=== PATIENT | female | born 1950 | race Caucasian/White ===

== ENCOUNTER 2016-05-04 13:42 | Outpatient (CLI) | payer MEDICARE, OTHER | END 2016-05-04 13:43 | disposition home or self-care (01) | DX: M19.012 Primary osteoarthritis, left shoulder (principal) ==

== ENCOUNTER 2016-05-17 13:47 | Outpatient (CLI) | payer MEDICARE, OTHER | END 2016-05-17 13:48 | disposition home or self-care (01) | DX: R07.89 Other chest pain (principal) ==

== ENCOUNTER 2016-05-31 12:54 | Outpatient (CLI) | payer MEDICARE, OTHER | END 2016-05-31 12:55 | disposition home or self-care (01) | DX: M81.0 Age-related osteoporosis without current pathological fracture (principal) ==

== ENCOUNTER 2016-08-19 09:31 | Outpatient (CLI) | payer MEDICARE, OTHER | END 2016-08-19 09:32 | disposition home or self-care (01) | DX: E78.5 Hyperlipidemia, unspecified (principal); E03.9 Hypothyroidism, unspecified; R73.9 Hyperglycemia, unspecified; R53.83 Other fatigue ==

== ENCOUNTER 2016-10-11 13:51 | Outpatient (CLI) | payer MEDICARE, OTHER ==
--- NOTE | 2016-10-12 10:37 | XRAY Report ---
TWO-VIEW CHEST: 10/11/2016 CLINICAL INDICATION: Bronchitis. COMPARISON: 05/17/2016 FINDINGS: Frontal and lateral views of the chest demonstrate a normal cardiac silhouette. Minimal l eft basilar scarring or atelectasis is noted. No effusion or pneumothorax is present. IMPRESSION: MINIMAL LEFT BASILAR SCARRING OR ATELECTASIS. JOB #: [id number] EXT JOB #:[id number]
== END 2016-10-11 13:52 | disposition home or self-care (01) ==
LOC: DI.N 13:51
PROVIDERS: ATTEND Physician Assistant
DX: J40 Bronchitis, not specified as acute or chronic (principal)
CPT/HCPCS: 71020

== ENCOUNTER 2017-01-15 11:25 | Emergency (ER) | payer MEDICARE, OTHER ==
[2017-01-15] MEDS ORDERED: predniSONE 20 MG TABLET PO STA (13:37)
[2017-01-15] MEDS ORDERED: predniSONE 20 MG TABLET ONE (13:46)
--- NOTE | 2017-01-15 13:55 | ED Physician Documentation ---
History of Present Illness - Stated complaint Stated Complaint: RASH ALL OVER - Chief complaint Chief Complaint: Wound - Additonal information Additional information: hx from pt 66 female at football game last night noted bump on left wrist possible insect bite worsening diffuse rash since no oral swelling or matteo Review of Systems Constitutional: denies: Fever Throat: denies: Sore throat Respiratory: denies: Dyspnea Skin: reports: Rash PD PAST MEDICAL HISTORY - Past Medical History Endocrine/Autoimmune: HyPOthyroidism - Past Surgical History Past Surgical History: Yes General: Cholecystectomy - Present Medications Home Medications: Ambulatory Orders Medication Instructions Recorded Confirmed Levothyroxine [Synthroid] 0 mcg PO DAILY 12/20/13 12/20/13 Lidocaine Ointment 5% [Xylocaine 1 applic TOP Q6H PRN #1 tube 01/15/17 Ointment 5%] Metformin HCl 0 mg PO DAILY 01/15/17 01/15/17 Omeprazole 0 mg PO DAILY 01/15/17 01/15/17 predniSONE [Deltasone] 40 mg PO DAILY 5 Days 01/15/17 - Allergies Allergies/Adverse Reactions: Allergies Allergy/AdvReac Type Severity Reaction Status Date / Time codeine Allergy Emesis Verified 01/15/17 13:18 Sulfa (Sulfonamide Allergy Rash Verified 01/15/17 13:18 Antibiotics) - Social History Does the pt smoke?: Yes Smoking Status: Current every day smoker Does the pt drink ETOH?: No - Immunizations Immunizations are current?: No PD ED PE NORMAL - Vitals Vital signs reviewed: Yes - General General: Alert and oriented X 3 - HEENT HEENT: PERRL - Neck Neck: Supple, no meningeal sign - Cardiac Cardiac: RRR - Respiratory Respiratory: No respiratory distress, Clear bilaterally - Derm Derm: Other (erythematous macules c/w hive to arms, no target lesions vesicles petecchia or purpura, no oral lesions, no palm lesions, no retained stinger) Results - Vitals Vitals: Vital Signs - 24 hr 01/15/17 11:40 Temperature 37.0 C Heart Rate 80 Respiratory 17 Rate Blood Pressure 121/75 O2 Saturation 97 Oxygen O2 Source Room air Departure - Departure Disposition: 01 Home, Self Care Clinical Impression: Hives Condition: Good Instructions: ED Allergic Reaction General Other Prescriptions: predniSONE [Deltasone] 40 mg PO DAILY 5 Days Lidocaine Ointment 5% [Xylocaine Ointment 5%] 1 applic TOP Q6H PRN #1 tube PRN Reason: Itching Comments: I'm not sure what you are allergic to but I have prescribed medication to ease the discomfort Follow up with your PMD if not better in three days Return if worse
[2017-01-15 14:16] VITALS: BP 132/63
== END 2017-01-15 14:16 | disposition home or self-care (01) ==
LOC: ED 11:25
DX: L50.9 Urticaria, unspecified (principal); E03.9 Hypothyroidism, unspecified; F17.200 Nicotine dependence, unspecified, uncomplicated
CPT/HCPCS: 99283; J7512

== ENCOUNTER 2017-01-30 14:55 | Outpatient (CLI) | payer MEDICARE, OTHER ==
--- NOTE | 2017-01-30 16:27 | Ultrasound Report ---
THYROID ULTRASOUND: 01/30/2017 CLINICAL INDICATION: Throat swelling. COMPARISON: 08/12/2013. TECHNIQUE: Real-time scanning was performed with outreach representative static images obtained. FINDINGS: The right lobe measures 3.2 x 1.0 x 0.9 cm, and the left lobe measures 3.3 x 1.1 x 0.8 cm. The isthmus measures 2 mm. Both lobes are mildly heterogeneous, stable. No focal nodule is appreciat ed. No adenopathy is seen. IMPRESSION: NO EVIDENCE OF THYROID NODULE. NO SIGNIFICANT INTERVAL CHANGE FROM 08/12/2013. JOB #: [id number] EXT JOB #:
== END 2017-01-30 14:56 | disposition home or self-care (01) ==
LOC: DI 14:55
PROVIDERS: ATTEND Family Medicine
DX: R22.1 Localized swelling, mass and lump, neck (principal); F17.210 Nicotine dependence, cigarettes, uncomplicated
CPT/HCPCS: 76536

== ENCOUNTER 2017-02-21 07:58 | Outpatient (CLI) | payer MEDICARE, OTHER ==
[2017-02-21 12:36] LABS: BASOPHILS # (AUTO) 0.1 10^3/uL (0.0-0.1); BASOPHILS % (AUTO) 1.2 %; EOSINOPHILS # (AUTO) 0.2 10^3/uL (0.0-0.7); HCT - HEMATOCRIT 38.9 % (37.0-47.0); HGB - HEMOGLOBIN 13.2 g/dL (12.0-16.0); LYMPHOCYTES # (AUTO) 2.5 10^3/uL (1.5-3.5); LYMPHOCYTES % (AUTO) 31.7 %; MEAN CORPUSCULAR HEMOGLOBIN 29.7 pg (27.0-31.0); MEAN CORPUSCULAR HGB CONC 34.1 g/dL (32.0-36.0); MEAN CORPUSCULAR VOLUME 87.3 fL (81.0-99.0); MONOCYTES # (AUTO) 0.6 10^3/uL (0.0-1.0); MONOCYTES % (AUTO) 7.8 %; NEUTROPHILS # (AUTO) 4.4 10^3/uL (1.5-6.6); NEUTROPHILS % (AUTO) 56.3 %; RED BLOOD COUNT 4.45 10^6/uL (4.20-5.40); RED CELL DISTRIBUTION WIDTH 13.2 % (12.0-15.0); UNCORRECTED WHITE BLOOD COUNT 7.8 x10^3/uL; WHITE BLOOD COUNT 7.8 x10^3/uL (4.8-10.8)
[2017-02-21 12:55] LABS: ALBUMIN/GLOBULIN RATIO 1.6 (1.0-2.2); BILIRUBIN,TOTAL 0.6 mg/dL (0.2-1.0); BUN - BLOOD UREA NITROGEN 19 mg/dL (6-20); CALCIUM 9.3 mg/dL (8.5-10.3); CARBON DIOXIDE - CO2 25 mmol/L (21-32); CHLORIDE 105 mmol/L (101-111); CHOL/HDL RATIO 4.9 (<4.4); CHOLESTEROL 161 mg/dL; CREATININE 0.8 mg/dL (0.4-1.0); GFR - MDRD 71 (>89); GLUCOSE 134 mg/dL (70-100); HDL CHOLESTEROL 33 mg/dL; POTASSIUM 3.9 mmol/L (3.5-5.0); SODIUM 139 mmol/L (135-145); TOTAL PROTEIN 6.6 g/dL (6.7-8.2); TRIGLYCERIDES 315 mg/dL; VLDL CHOLESTEROL 63 mg/dL
[2017-02-21 13:04] LABS: THYROID STIMULATING HORMONE 3.86 uIU/mL (0.34-5.60)
[2017-02-21 13:05] LABS: HEMOGLOBIN A1C 0.81 g/dL
== END 2017-02-21 07:59 ==
LOC: LAB.N 07:58
PROVIDERS: ATTEND Family Medicine
DX: M81.0 Age-related osteoporosis without current pathological fracture (principal); E78.5 Hyperlipidemia, unspecified; E03.9 Hypothyroidism, unspecified; R73.9 Hyperglycemia, unspecified
CPT/HCPCS: 36415; 80053; 80061; 82306; 83036; 84439; 84443; 85025

== ENCOUNTER 2017-05-10 08:16 | Outpatient (CLI) | payer MEDICARE, OTHER ==
[2017-05-10 12:55] LABS: ALBUMIN 4.2 g/dL (3.2-5.5); ALBUMIN/GLOBULIN RATIO 1.6 (1.0-2.2); ALKALINE PHOSPHATASE 76 IU/L (42-121); ALT ALANINE AMINOTRANSFERASE 22 IU/L (10-60); AST ASPARTATE AMINOTRANSFERASE 22 IU/L (10-42); BILIRUBIN,TOTAL 0.2 mg/dL (0.2-1.0); BUN - BLOOD UREA NITROGEN 18 mg/dL (6-20); CALCIUM 8.9 mg/dL (8.5-10.3); CARBON DIOXIDE - CO2 26 mmol/L (21-32); CHLORIDE 107 mmol/L (101-111); CHOL/HDL RATIO 4.4 (<4.4); CHOLESTEROL 162 mg/dL; CREATININE 0.8 mg/dL (0.4-1.0); GFR - MDRD 71 (>89); GLUCOSE 112 mg/dL (70-100); HDL CHOLESTEROL 37 mg/dL; LDL CHOLESTEROL,CALCULATED 67 mg/dL; LDL/HDL RATIO 1.8 (<4.4); SODIUM 137 mmol/L (135-145); TOTAL PROTEIN 6.8 g/dL (6.7-8.2); VLDL CHOLESTEROL 58 mg/dL
== END 2017-05-10 08:17 | disposition home or self-care (01) ==
LOC: LAB.N 08:16
PROVIDERS: ATTEND Family Medicine
DX: E78.5 Hyperlipidemia, unspecified (principal); E03.9 Hypothyroidism, unspecified
CPT/HCPCS: 36415; 80053; 80061; 84443

== ENCOUNTER 2017-06-14 13:18 | Outpatient (CLI) | payer MEDICARE, OTHER ==
[2017-06-14 19:09] LABS: CREATININE 0.7 mg/dL (0.4-1.0)
[2017-06-14 19:34] LABS: HEMOGLOBIN A1C 0.68 g/dL; HEMOGLOBIN A1C % 6.3 % (4.6-6.2)
== END 2017-06-14 13:19 | disposition home or self-care (01) ==
LOC: LAB.N 13:18
PROVIDERS: ATTEND Family Medicine
DX: E11.9 Type 2 diabetes mellitus without complications (principal)
CPT/HCPCS: 36415; 80048; 83036

== ENCOUNTER 2017-09-18 10:45 | Outpatient (CLI) | payer MEDICARE, OTHER ==
[2017-09-18 19:25] LABS: HB2 TOTAL 14.1 g/dL; HEMOGLOBIN A1C 0.63 g/dL; HEMOGLOBIN A1C % 6.2 % (4.6-6.2)
[2017-09-18 19:29] LABS: CALCIUM 9.3 mg/dL (8.5-10.3); CREATININE 0.8 mg/dL (0.4-1.0)
== END 2017-09-18 10:46 | disposition home or self-care (01) ==
LOC: LAB.N 10:45
PROVIDERS: ATTEND Family Medicine
DX: E11.9 Type 2 diabetes mellitus without complications (principal)
CPT/HCPCS: 36415; 80048; 83036

== ENCOUNTER 2018-01-02 08:22 | Outpatient (CLI) | payer MEDICARE, OTHER ==
[2018-01-02 12:39] LABS: CALCIUM 9.4 mg/dL (8.5-10.3); CREATININE 0.8 mg/dL (0.4-1.0)
[2018-01-02 13:01] LABS: THYROID STIMULATING HORMONE 5.28 uIU/mL (0.34-5.60)
[2018-01-02 13:03] LABS: FREE T4 (FREE THYROXINE) 0.91 ng/dL (0.58-1.64)
[2018-01-02 13:08] LABS: HEMOGLOBIN A1C 0.63 g/dL; HEMOGLOBIN A1C % 6.3 % (4.6-6.2)
== END 2018-01-02 08:23 | disposition home or self-care (01) ==
LOC: LAB.N 08:22
PROVIDERS: ATTEND Family Medicine
DX: E11.9 Type 2 diabetes mellitus without complications (principal); E03.9 Hypothyroidism, unspecified
CPT/HCPCS: 36415; 80048; 83036; 84439; 84443

== ENCOUNTER 2018-05-08 14:03 | Outpatient (CLI) | payer MEDICARE, OTHER ==
[2018-05-08 19:07] LABS: CALCIUM 9.5 mg/dL (8.5-10.3); CREATININE 0.7 mg/dL (0.4-1.0)
[2018-05-08 19:15] LABS: HB2 TOTAL 14.6 g/dL; HEMOGLOBIN A1C 0.61 g/dL
== END 2018-05-08 23:59 | disposition home or self-care (01) ==
LOC: LAB.N 14:03
PROVIDERS: ATTEND Nurse Practitioner Gerontology
DX: E11.9 Type 2 diabetes mellitus without complications (principal)
CPT/HCPCS: 36415; 80048; 83036

== ENCOUNTER 2018-08-20 08:00 | Outpatient (CLI) | payer MEDICARE, OTHER ==
[2018-08-20 13:45] LABS: BASOPHILS # (AUTO) 0.1 10^3/uL (0.0-0.1); BASOPHILS % (AUTO) 0.7 %; EOSINOPHILS # (AUTO) 0.3 10^3/uL (0.0-0.7); EOSINOPHILS % (AUTO) 4.1 %; HGB - HEMOGLOBIN 13.4 g/dL (12.0-16.0); LYMPHOCYTES # (AUTO) 2.5 10^3/uL (1.5-3.5); MEAN CORPUSCULAR HEMOGLOBIN 29.8 pg (27.0-31.0); MEAN CORPUSCULAR HGB CONC 33.5 g/dL (32.0-36.0); MEAN CORPUSCULAR VOLUME 89.1 fL (81.0-99.0); MONOCYTES # (AUTO) 0.6 10^3/uL (0.0-1.0); MONOCYTES % (AUTO) 7.6 %; NEUTROPHILS # (AUTO) 4.4 10^3/uL (1.5-6.6); NEUTROPHILS % (AUTO) 55.6 %; PLT - PLATELET COUNT 231 10^3/uL (130-450); RED BLOOD COUNT 4.49 10^6/uL (4.20-5.40); RED CELL DISTRIBUTION WIDTH 13.1 % (12.0-15.0); WHITE BLOOD COUNT 7.8 x10^3/uL (4.8-10.8)
[2018-08-20 14:03] LABS: ALBUMIN/GLOBULIN RATIO 1.4 (1.0-2.2); ALKALINE PHOSPHATASE 69 IU/L (42-121); ALT ALANINE AMINOTRANSFERASE 25 IU/L (10-60); AST ASPARTATE AMINOTRANSFERASE 22 IU/L (10-42); BILIRUBIN,TOTAL 0.5 mg/dL (0.2-1.0); BUN - BLOOD UREA NITROGEN 20 mg/dL (6-20); CALCIUM 9.1 mg/dL (8.5-10.3); CARBON DIOXIDE - CO2 25 mmol/L (21-32); CHLORIDE 107 mmol/L (101-111); CHOL/HDL RATIO 3.4 (<4.4); CHOLESTEROL 155 mg/dL; CREATININE 0.8 mg/dL (0.4-1.0); GFR - MDRD 71 (>89); GLUCOSE 111 mg/dL (70-100); HDL CHOLESTEROL 46 mg/dL; LDL CHOLESTEROL,CALCULATED 65 mg/dL; LDL/HDL RATIO 1.4 (<4.4); SODIUM 139 mmol/L (135-145); TOTAL PROTEIN 6.9 g/dL (6.7-8.2); VLDL CHOLESTEROL 44 mg/dL
[2018-08-20 14:59] LABS: HB2 TOTAL 14.4 g/dL; HEMOGLOBIN A1C 0.61 g/dL
== END 2018-08-20 23:59 | disposition home or self-care (01) ==
LOC: LAB.N 08:00
PROVIDERS: ATTEND Nurse Practitioner Gerontology
DX: E11.9 Type 2 diabetes mellitus without complications (principal); E78.5 Hyperlipidemia, unspecified; E03.9 Hypothyroidism, unspecified; Z12.11 Encounter for screening for malignant neoplasm of colon
CPT/HCPCS: 36415; 80053; 80061; 83036; 83721; 84443; 85025

== ENCOUNTER 2018-08-21 08:00 | Outpatient (CLI) | payer MEDICARE, OTHER | END 2018-08-21 08:01 | disposition home or self-care (01) | LOC: LAB.R 08:00 | PROVIDERS: ATTEND Nurse Practitioner Gerontology | DX: E11.9 Type 2 diabetes mellitus without complications (principal); E78.5 Hyperlipidemia, unspecified; E03.9 Hypothyroidism, unspecified; Z12.11 Encounter for screening for malignant neoplasm of colon | CPT/HCPCS: 82274 ==

== ENCOUNTER 2018-10-31 14:40 | Outpatient (CLI) | payer MEDICARE, OTHER ==
--- NOTE | 2018-11-02 09:34 | Mammography Report ---
Reason: ROUTINE MAMMO Procedure Date: 10/31/2018 Accession Number: [id number] / [id number] Procedure: MGN - Screening Mammo Dig Bilat CPT Code: FULL RESULT: EXAM: Screening Mammo Dig Bilat DATE: 10/31/2018 2:56 PM CLINICAL HISTORY: Routine screening TECHNIQUE: (B) - Bilateral CC and MLO views were obtained. COMPARISON: 09/26/2013, 12/22/2011, 12/09/2011 and 08/21/2007 PARENCHYMAL PATTERN: (A) - The breasts demonstrate scattered fibroglandular densities bilaterally. FINDINGS: No significant interval change. There are no suspicious masses, calcifications, or areas of distortion. IMPRESSION: Negative examination. BI-RADS category 1. RECOMMENDATION: (ANNUAL) - Recommend routine annual screening mammography. BI-RADS CATEGORY: (1) - Negative. STANDARD QUALIFYING STATEMENTS: 1. This examination was not reviewed with the aid of Computer-Aided Detection (CAD). 2. A negative or benign imaging report should not preclude biopsy if clinically suspicious findings are present. 3. Dense breasts may obscure an underlying neoplasm. 4. This examination was reviewed without the aid of 3D breast imaging (tomosynthesis).
== END 2018-10-31 14:41 | disposition home or self-care (01) ==
LOC: DI.N 14:40
PROVIDERS: ATTEND Nurse Practitioner Gerontology
DX: Z12.31 Encounter for screening mammogram for malignant neoplasm of breast (principal)
CPT/HCPCS: 77067

== ENCOUNTER 2019-09-13 09:38 | Outpatient (CLI) | payer MEDICARE, OTHER ==
[2019-09-13 13:05] LABS: BASOPHILS # (AUTO) 0.1 10^3/uL (0.0-0.1); BASOPHILS % (AUTO) 1.2 %; EOSINOPHILS # (AUTO) 0.3 10^3/uL (0.0-0.7); EOSINOPHILS % (AUTO) 4.5 %; HGB - HEMOGLOBIN 13.2 g/dL (12.0-16.0); LYMPHOCYTES # (AUTO) 1.7 10^3/uL (1.5-3.5); LYMPHOCYTES % (AUTO) 22.8 %; MEAN CORPUSCULAR HEMOGLOBIN 30.3 pg (27.0-31.0); MEAN CORPUSCULAR HGB CONC 32.6 g/dL (32.0-36.0); MEAN CORPUSCULAR VOLUME 93.1 fL (81.0-99.0); MEAN PLATELET VOLUME 10.6 fL (7.9-10.8); MONOCYTES # (AUTO) 0.6 10^3/uL (0.0-1.0); MONOCYTES % (AUTO) 7.6 %; NEUTROPHILS # (AUTO) 4.6 10^3/uL (1.5-6.6); NEUTROPHILS % (AUTO) 63.2 %; PLT - PLATELET COUNT 244 10^3/uL (130-450); RED BLOOD COUNT 4.35 10^6/uL (4.20-5.40); RED CELL DISTRIBUTION WIDTH 14.5 % (12.0-15.0); WHITE BLOOD COUNT 7.3 x10^3/uL (4.8-10.8)
[2019-09-13 13:39] LABS: HB2 TOTAL 14.3 g/dL; HEMOGLOBIN A1C 0.56 g/dL; HEMOGLOBIN A1C % 5.7 % (4.6-6.2)
[2019-09-13 13:46] LABS: ALBUMIN 4.2 g/dL (3.2-5.5); ALBUMIN/GLOBULIN RATIO 1.6 (1.0-2.2); ALKALINE PHOSPHATASE 67 IU/L (42-121); ALT ALANINE AMINOTRANSFERASE 18 IU/L (10-60); AST ASPARTATE AMINOTRANSFERASE 19 IU/L (10-42); BILIRUBIN,TOTAL 0.5 mg/dL (0.2-1.0); BUN - BLOOD UREA NITROGEN 20 mg/dL (6-20); CALCIUM 9.1 mg/dL (8.5-10.3); CARBON DIOXIDE - CO2 26 mmol/L (21-32); CHLORIDE 107 mmol/L (101-111); CHOL/HDL RATIO 3.1 (<4.4); CHOLESTEROL 166 mg/dL; CREATININE 0.7 mg/dL (0.4-1.0); GLUCOSE 110 mg/dL (70-100); HDL CHOLESTEROL 53 mg/dL; LDL CHOLESTEROL,CALCULATED 88 mg/dL; LDL/HDL RATIO 1.7 (<4.4); SODIUM 139 mmol/L (135-145); TOTAL PROTEIN 6.9 g/dL (6.7-8.2); VLDL CHOLESTEROL 25 mg/dL
== END 2019-09-13 23:59 | disposition home or self-care (01) ==
LOC: LAB.WCP 09:38
PROVIDERS: ATTEND Family Medicine
DX: E11.9 Type 2 diabetes mellitus without complications (principal); E78.5 Hyperlipidemia, unspecified; E03.9 Hypothyroidism, unspecified
CPT/HCPCS: 36415; 80053; 80061; 83036; 83721; 84443; 85025

== ENCOUNTER 2020-09-30 08:09 | Outpatient (CLI) | payer MEDICARE, OTHER ==
[2020-09-30 12:37] LABS: BASOPHILS # (AUTO) 0.1 10^3/uL (0.0-0.1); BASOPHILS % (AUTO) 1.1 %; EOSINOPHILS # (AUTO) 0.3 10^3/uL (0.0-0.7); EOSINOPHILS % (AUTO) 3.4 %; HCT - HEMATOCRIT 38.8 % (37.0-47.0); LYMPHOCYTES # (AUTO) 2.4 10^3/uL (1.5-3.5); LYMPHOCYTES % (AUTO) 26.6 %; MEAN CORPUSCULAR HEMOGLOBIN 30.5 pg (27.0-31.0); MEAN CORPUSCULAR HGB CONC 33.5 g/dL (32.0-36.0); MEAN CORPUSCULAR VOLUME 91.1 fL (81.0-99.0); MEAN PLATELET VOLUME 10.7 fL (7.9-10.8); MONOCYTES # (AUTO) 0.8 10^3/uL (0.0-1.0); MONOCYTES % (AUTO) 8.6 %; NEUTROPHILS # (AUTO) 5.3 10^3/uL (1.5-6.6); PLT - PLATELET COUNT 228 10^3/uL (130-450); RED BLOOD COUNT 4.26 10^6/uL (4.20-5.40); RED CELL DISTRIBUTION WIDTH 12.7 % (12.0-15.0); WHITE BLOOD COUNT 8.9 x10^3/uL (4.8-10.8)
[2020-09-30 12:54] LABS: ALBUMIN 4.2 g/dL (3.2-5.5); ALBUMIN/GLOBULIN RATIO 1.4 (1.0-2.2); ALKALINE PHOSPHATASE 59 IU/L (42-121); ALT ALANINE AMINOTRANSFERASE 13 IU/L (10-60); AST ASPARTATE AMINOTRANSFERASE 16 IU/L (10-42); BILIRUBIN,TOTAL 0.4 mg/dL (0.2-1.0); BUN - BLOOD UREA NITROGEN 22 mg/dL (6-20); CALCIUM 9.4 mg/dL (8.5-10.3); CARBON DIOXIDE - CO2 24 mmol/L (21-32); CHLORIDE 107 mmol/L (101-111); CHOL/HDL RATIO 3.4 (<4.4); CHOLESTEROL 155 mg/dL; CREATININE 0.8 mg/dL (0.4-1.0); GFR - MDRD 71 (>89); GLUCOSE 94 mg/dL (70-100); HDL CHOLESTEROL 46 mg/dL; LDL CHOLESTEROL,CALCULATED 57 mg/dL; LDL/HDL RATIO 1.2 (<4.4); POTASSIUM 4.1 mmol/L (3.5-5.0); SODIUM 141 mmol/L (135-145); TOTAL PROTEIN 7.1 g/dL (6.7-8.2); TRIGLYCERIDES 260 mg/dL; VLDL CHOLESTEROL 52 mg/dL
[2020-09-30 13:04] LABS: ESTIMATED AVERAGE GLUCOSE 111 mg/dL (70-100); HEMOGLOBIN A1c% 5.5 % (4.27-6.07); THYROID STIMULATING HORMONE 0.44 uIU/mL (0.34-5.60)
[2020-09-30 13:20] LABS: CREATININE,URINE 186.1 mg/dL; MICROALBUM/CREATININE RATIO,UR 7.5 ug/mg (<30.0); MICROALBUMIN,URINE 1.4 mg/dL (0-300.0)
== END 2020-09-30 08:10 | disposition home or self-care (01) ==
LOC: LAB.N 08:09
PROVIDERS: ATTEND Internal Medicine
DX: E11.9 Type 2 diabetes mellitus without complications (principal)
CPT/HCPCS: 36415; 80053; 80061; 82043; 82570; 83036; 83721; 84443; 85025

== ENCOUNTER 2020-12-07 08:00 | Outpatient (CLI) | payer MEDICARE, OTHER ==
[2020-12-07 17:47] LABS: BASOPHILS # (AUTO) 0.1 10^3/uL (0.0-0.1); BASOPHILS % (AUTO) 1.1 %; EOSINOPHILS # (AUTO) 0.2 10^3/uL (0.0-0.7); EOSINOPHILS % (AUTO) 2.2 %; HGB - HEMOGLOBIN 12.7 g/dL (12.0-16.0); LYMPHOCYTES # (AUTO) 2.1 10^3/uL (1.5-3.5); LYMPHOCYTES % (AUTO) 23.2 %; MEAN CORPUSCULAR HEMOGLOBIN 29.8 pg (27.0-31.0); MEAN CORPUSCULAR HGB CONC 31.8 g/dL (32.0-36.0); MEAN CORPUSCULAR VOLUME 93.9 fL (81.0-99.0); MEAN PLATELET VOLUME 10.6 fL (7.9-10.8); MONOCYTES # (AUTO) 0.6 10^3/uL (0.0-1.0); MONOCYTES % (AUTO) 6.9 %; NEUTROPHILS % (AUTO) 66.3 %; PLT - PLATELET COUNT 241 10^3/uL (130-450); RED BLOOD COUNT 4.26 10^6/uL (4.20-5.40); RED CELL DISTRIBUTION WIDTH 12.8 % (12.0-15.0)
[2020-12-07 18:48] LABS: ALBUMIN 4.3 g/dL (3.2-5.5); ALBUMIN/GLOBULIN RATIO 1.7 (1.0-2.2); ALKALINE PHOSPHATASE 62 IU/L (42-121); ALT ALANINE AMINOTRANSFERASE 14 IU/L (10-60); AMYLASE 45 U/L (28-100); AST ASPARTATE AMINOTRANSFERASE 15 IU/L (10-42); BILIRUBIN,TOTAL 0.6 mg/dL (0.2-1.0); BUN - BLOOD UREA NITROGEN 18 mg/dL (6-20); CARBON DIOXIDE - CO2 26 mmol/L (21-32); CHLORIDE 105 mmol/L (101-111); CHOL/HDL RATIO 3.3 (<4.4); CHOLESTEROL 150 mg/dL; CREATININE 0.9 mg/dL (0.4-1.0); GFR - MDRD 62 (>89); GLUCOSE 116 mg/dL (70-100); HDL CHOLESTEROL 45 mg/dL; LDL CHOLESTEROL,CALCULATED 49 mg/dL; LDL/HDL RATIO 1.1 (<4.4); LIPASE 32 U/L (22-51); POTASSIUM 4.3 mmol/L (3.5-5.0); SODIUM 139 mmol/L (135-145); TOTAL PROTEIN 6.9 g/dL (6.7-8.2); TRIGLYCERIDES 282 mg/dL; VLDL CHOLESTEROL 56 mg/dL
[2020-12-07 19:01] LABS: BILIRUBIN,URINE NEGATIVE (NEGATIVE); GLUCOSE, URINE (UA) 100 mg/dL (NEGATIVE); KETONES,URINE (UA) NEGATIVE (NEGATIVE); LEUKOCYTE ESTERASE, URINE NEGATIVE (NEGATIVE); NITRITE,URINE NEGATIVE (NEGATIVE); OCCULT BLOOD,URINE NEGATIVE (NEGATIVE); PROTEIN,URINE NEGATIVE (NEGATIVE); UROBILINOGEN,URINE 0.2 (NORMAL) E.U./dL (NORMAL)
[2020-12-07 19:08] LABS: CLARITY,URINE HAZY (CLEAR)
[2020-12-07 19:14] LABS: WBC,URINE 0-3 /HPF (0-5)
[2020-12-07 19:15] LABS: AMORPHOUS SEDIMENT,UR Marked /LPF; BACTERIA,URINE Rare /HPF (None Seen); CRYSTALS,URINE 0-2 Calcium Oxalate /LPF; RBC,URINE 0-5 /HPF (0-5); SQUAMOUS EPITHELIAL CELL,UR RARE Squamous (<= Few)
[2020-12-07 19:16] LABS: CREATININE,URINE 201.3 mg/dL; MICROALBUM/CREATININE RATIO,UR 5.5 ug/mg (<30.0); MICROALBUMIN,URINE 1.1 mg/dL (0-300.0)
[2020-12-07 20:00] LABS: ESTIMATED AVERAGE GLUCOSE 111 mg/dL (70-100); HEMOGLOBIN A1c% 5.5 % (4.27-6.07)
== END 2020-12-07 23:59 | disposition home or self-care (01) ==
LOC: LAB.WCP 08:00
PROVIDERS: ATTEND Nurse Practitioner
DX: R10.9 Unspecified abdominal pain (principal); E78.5 Hyperlipidemia, unspecified; E11.9 Type 2 diabetes mellitus without complications
CPT/HCPCS: 36415; 80053; 80061; 81001; 82043; 82150; 82570; 83036; 83690; 83721; 85025; 87086

== ENCOUNTER 2020-12-30 13:28 | Outpatient (CLI) | payer MEDICARE, OTHER ==
--- NOTE | 2020-12-31 13:22 | Mammography Report ---
BILATERAL DIGITAL SCREENING MAMMOGRAM 3D/2D: 12/30/2020 CLINICAL: Routine screening. Comparison is made to exams dated: 10/31/2018 mammogram, 09/26/2013 mammogram, 12/22/2011 mammogram, 11/29 mammogram, and 08/21/2007 mammogram - [facility]. There are scattered fibrog landular elements in both breasts. No significant masses, calcifications, or other findings are seen in either breast. There has been no significant interval change. IMPRESSION: NEGATIVE There is no mammographic evidence of malignancy. A 1 year screening mammogram is recommended. This exam was interpreted at Station ID: [id number]. NOTE: For mammograms, a report in lay terms will be sent to the patient. Approximately 15% of breast malignancies will not be visualized mammographically. In the management of a palpable breast mass, a negative mammogram must not discourage biopsy of a clinically suspicious lesion. Electronically Signed By: Kriss reid/marilin:12/30/2020 16:17:18 ACR BI-RADS Category 1: Negative 3341F PARENCHYMAL PATTERN: (A) - The breast(s) demonstrate(s) scattered fibroglandular densities. BI-RADS CATEGORY: (1) - 1 RECOMMENDATION: (ANNUAL) - Recommend routine annual screening mammography. [id number] 1 year screening LATERALITY: (B)
== END 2020-12-30 13:29 | disposition home or self-care (01) ==
LOC: DI.N 13:28
PROVIDERS: ATTEND Internal Medicine
DX: Z12.31 Encounter for screening mammogram for malignant neoplasm of breast (principal)

== ENCOUNTER 2021-01-13 08:00 | Outpatient (CLI) | payer MEDICARE, OTHER ==
[2021-01-14 12:20] LABS: FECAL OCCULT BLOOD (FIT) POSITIVE (NEGATIVE)
== END 2021-01-13 23:59 | disposition home or self-care (01) ==
LOC: LAB 08:00
PROVIDERS: ATTEND Nurse Practitioner
DX: Z12.11 Encounter for screening for malignant neoplasm of colon (principal)
CPT/HCPCS: 82274

== ENCOUNTER 2021-01-22 07:00 | Outpatient (CLI) | payer MEDICARE, OTHER | END 2021-01-22 23:59 | disposition home or self-care (01) | LOC: LAB 07:00 | PROVIDERS: ATTEND Nurse Practitioner | DX: J06.9 Acute upper respiratory infection, unspecified (principal); Z20.822 Contact with and (suspected) exposure to COVID-19 ==

== ENCOUNTER 2021-09-08 12:46 | Outpatient (CLI) | payer MEDICARE, OTHER ==
--- NOTE | 2021-09-08 14:18 | XRAY Report ---
PROCEDURE: Lumbar Spine 2 View INDICATIONS: BACK PAIN TECHNIQUE: 2 views of the lumbar spine were acquired. COMPARISON: None. FINDINGS: Bones: 5 [id number]-[id number] vertebrae are present. There is normal bony alignment. No vertebral body compression fractures. No suspicious bony lesions. There is mild degenerative disc disease at L3-L4 and L4-L5. Moderate facet arthropathy at 4-L5 and L5-S1. Soft tissues: Overlying bowel gas pattern is normal. Vascular calcifications consistent with hyperos tosis. Note is made of of cholecystectomy. IMPRESSION: 1. Mild degenerative disc disease at L3-L4 and L5 L5. 2. Moderate facet arthropathy at L4-L5 and L5-S1. Reviewed by: Carmina Deleon MD on 09/08/2021 1:17 PM [facility]ER[facility] Approved by: Carmina Deleon MD on 09/08/2021 1:17 PM SHER[facility] Station ID: [id number]
== END 2021-09-08 12:47 | disposition home or self-care (01) ==
LOC: DI 12:46
PROVIDERS: ATTEND Nurse Practitioner
DX: M51.36 Other intervertebral disc degeneration, lumbar region (principal); M47.816 Spondylosis without myelopathy or radiculopathy, lumbar region; M47.817 Spondylosis without myelopathy or radiculopathy, lumbosacral region

== ENCOUNTER 2022-03-01 08:00 | Outpatient (CLI) | payer MEDICARE, OTHER ==
--- NOTE | 2022-03-01 19:17 | XRAY Report ---
PROCEDURE: Chest 2 View X-Ray INDICATIONS: COUGH TECHNIQUE: 2 view(s) of the chest. COMPARISON: None. FINDINGS: Surgical changes and devices: None. Lungs and pleura: No pleural effusions or pneumothorax. Linear opacities at both lung bases, likely atelectasis and/or scarring. No consolidation visualized. The lungs appear hyperinflated, a finding t hat can be seen in the setting of COPD. Mediastinum: Mediastinal contours are normal. Heart size is normal. Bones and chest wall: No suspicious bony abnormalities. Soft tissues appear unremarkable. IMPRESSION: No acute appearing cardiopulmonary abnormality. Linear opacities are present at both kaden g bases likely representing atelectasis and/or scarring. Reviewed by: Benjamin Marcano MD on 03/01/2022 7:16 PM PDT Approved by: Benjamin Marcano MD on 03/01/2022 7:16 PM PDT Station ID: [id number]
== END 2022-03-01 23:59 | disposition home or self-care (01) ==
LOC: DI.N 08:00
PROVIDERS: ATTEND Physician Assistant
DX: R05.9 Cough, unspecified (principal)

== ENCOUNTER 2022-05-12 08:00 | Outpatient (CLI) | payer MEDICARE, OTHER ==
[2022-05-12 17:58] LABS: FECAL OCCULT BLOOD (FIT) NEGATIVE (NEGATIVE)
== END 2022-05-12 23:59 | disposition home or self-care (01) ==
LOC: LAB.N 08:00
PROVIDERS: ATTEND Nurse Practitioner
DX: Z12.11 Encounter for screening for malignant neoplasm of colon (principal)
CPT/HCPCS: 82274

== ENCOUNTER 2022-05-20 09:18 | Outpatient (CLI) | payer MEDICARE, OTHER ==
[2022-05-20 12:49] LABS: BASOPHILS # (AUTO) 0.1 10^3/uL (0.0-0.1); EOSINOPHILS # (AUTO) 0.3 10^3/uL (0.0-0.7); EOSINOPHILS % (AUTO) 2.8 %; HCT - HEMATOCRIT 41.5 % (37.0-47.0); HGB - HEMOGLOBIN 13.5 g/dL (12.0-16.0); LYMPHOCYTES # (AUTO) 2.2 10^3/uL (1.5-3.5); MEAN CORPUSCULAR HEMOGLOBIN 29.4 pg (27.0-31.0); MEAN CORPUSCULAR HGB CONC 32.5 g/dL (32.0-36.0); MEAN CORPUSCULAR VOLUME 90.4 fL (81.0-99.0); MEAN PLATELET VOLUME 10.4 fL (7.9-10.8); MONOCYTES # (AUTO) 0.7 10^3/uL (0.0-1.0); NEUTROPHILS # (AUTO) 6.8 10^3/uL (1.5-6.6); NEUTROPHILS % (AUTO) 66.8 %; PLT - PLATELET COUNT 272 10^3/uL (130-450); RED BLOOD COUNT 4.59 10^6/uL (4.20-5.40); RED CELL DISTRIBUTION WIDTH 14.1 % (12.0-15.0); WHITE BLOOD COUNT 10.1 x10^3/uL (4.8-10.8)
[2022-05-20 13:29] LABS: ESTIMATED AVERAGE GLUCOSE 114 mg/dL (70-100); HEMOGLOBIN A1c% 5.6 % (4.27-6.07)
[2022-05-20 13:30] LABS: CHOL/HDL RATIO 3.1 (<4.4); CHOLESTEROL 134 mg/dL; HDL CHOLESTEROL 43 mg/dL; LDL CHOLESTEROL,CALCULATED 46 mg/dL; LDL/HDL RATIO 1.1 (<4.4); TRIGLYCERIDES 224 mg/dL; VLDL CHOLESTEROL 45 mg/dL
[2022-05-20 13:42] LABS: THYROID STIMULATING HORMONE 16.78 uIU/mL (0.34-5.60)
[2022-05-20 13:45] LABS: FREE T4 (FREE THYROXINE) 0.74 ng/dL (0.58-1.64)
[2022-05-20 19:03] LABS: CREATININE,URINE 137.6 mg/dL; MICROALBUM/CREATININE RATIO,UR 7.3 ug/mg (<30.0)
== END 2022-05-20 09:19 | disposition home or self-care (01) ==
LOC: LAB.N 09:18
PROVIDERS: ATTEND Nurse Practitioner
DX: E78.5 Hyperlipidemia, unspecified (principal); E11.9 Type 2 diabetes mellitus without complications; E03.9 Hypothyroidism, unspecified
CPT/HCPCS: 36415; 80061; 82043; 82570; 82607; 83036; 83721; 84439; 84443; 85025

== ENCOUNTER 2022-05-24 14:24 | Outpatient (CLI) | payer MEDICARE, OTHER ==
--- NOTE | 2022-05-25 09:16 | Mammography Report ---
BILATERAL DIGITAL SCREENING MAMMOGRAM 3D/2D: 05/24/2022 CLINICAL: Routine screening. Comparison is made to exams dated: 12/30/2020 mammogram, 10/31/2018 mammogram, 09/26/2013 mammogram, 12/21 mammogram, and 12/09/2011 mammogram - [facility]. There are scattered areas of fibroglandular density in both breasts (category b / 25%-50% glandular t issue). No significant masses, calcifications, or other findings are seen in either breast. There has been no significant interval change. IMPRESSION: NEGATIVE There is no mammographic evidence of malignancy. A 1 year screening mammogram is recommended. Based on the Tyrer Cuzick model (a risk assessment model) the patients lifetime risk is 2.7% and her 10 year risk is 2.2%. According to the ACR, ACS, and NCCN guidelines, an annual breast MRI exam conrad g with mammogram is recommended if the patients lifetime risk is 20% or greater. This exam was interpreted at Station ID: [id number]. NOTE: For mammograms, a report in lay terms will be sent to the patient. Approximately 15% of breast malignancies will not be visualized mammographically. In the management of a palpable breast mass, a negative mammogram must not discourage biopsy of a clinically suspicious lesion. Electronically Signed By: Lobito Humphrey M.D. acr/penrad:05/24/2022 15:35:27 ACR BI-RADS Category 1: Negative 3341F PARENCHYMAL PATTERN: (A) - The breast(s) demonstrate(s) scattered fibroglandular densities. BI-RADS CATEGORY: (1) - 1 RECOMMENDATION: (ANNUAL) - Recommend routine annual screening mammography. [id number] 1 year screening LATERALITY: (B)
== END 2022-05-24 14:25 | disposition home or self-care (01) ==
LOC: DI 14:24
PROVIDERS: ATTEND Nurse Practitioner
DX: Z12.31 Encounter for screening mammogram for malignant neoplasm of breast (principal)

== ENCOUNTER 2022-06-06 13:09 | Outpatient (CLI) | payer MEDICARE, OTHER ==
--- NOTE | 2022-06-06 20:06 | CT Report ---
PROCEDURE: Low Dose Lung Cancer Screen INDICATIONS: CIGARETTE SMOKER TECHNIQUE: Noncontrast low-dose axial images were acquired from the pulmonary apices to the posterior costophren ic angles. Multiplanar MIP reformats were then reconstructed. For radiation dose reduction, the follo wing was used: automated exposure control, adjustment of mA and/or kV according to patient size. COMPARISON: CXR 03/01/2022. CT abdomen pelvis 03/08/2021. FINDINGS: Image quality: Excellent. Lungs and pleura: Mild emphysematous change. A few small pulmonary cysts. Mild dependent curvilinear opacity which has the appearance of atelectasis. Central airways are clear. Right upper lobe pulmona ry nodule measuring 0.3 cm, (4/82). No pulmonary mass. No pleural effusion. No pneumothorax. Mediastinum: Heart size is normal. No pericardial effusion. No mediastinal adenopathy by size crit eria. Thoracic aorta and central pulmonary arteries are normal in size. Esophagus is normal in bg vik. No hiatal hernia. Bones and chest wall: No suspicious bony lesions. No vertebral body compression fractures. No axil homero or supraclavicular adenopathy by size criteria. The thyroid is normal in size and there are no incidental findings. Abdomen: Visualized upper abdomen solid organs and bowel loops appear normal in the absence of contr ast. Small pulmonary cysts. Cholecystectomy. IMPRESSION: Right upper lobe pulmonary nodule measuring 0.3 cm. Lung RADS 2. Recommend follow-up CT lung cancer screening in 12 months. Reviewed by: Tyrell John MD on 06/06/2022 8:05 PM [facility] Approved by: Tyrell John MD on 06/06/2022 8:05 PM PST Station ID: [id number]
== END 2022-06-06 13:10 | disposition home or self-care (01) ==
LOC: DI 13:09
PROVIDERS: ATTEND Nurse Practitioner
DX: Z12.2 Encounter for screening for malignant neoplasm of respiratory organs (principal); R91.1 Solitary pulmonary nodule; F17.210 Nicotine dependence, cigarettes, uncomplicated

== ENCOUNTER 2023-01-31 17:23 | Emergency (ER) | payer MEDICARE, OTHER ==
[2023-01-31 17:41] VITALS: BP 124/105; O2SAT 99
--- NOTE | 2023-01-31 18:35 | XRAY Report ---
PROCEDURE: Ankle 3 View LT INDICATIONS: Trauma TECHNIQUE: 3 views of the ankle were acquired. COMPARISON: None. FINDINGS: Bones: Suspect oblique fracture through the distal tibia, at the level of the syndesmosis. Soft tissues: Moderate tibiotalar joint effusion. Achilles tendon appears normal. IMPRESSION: Suspect oblique fracture through the distal tibia, at the level of the syndesmosis. No features of un stable fracture. Reviewed by: Crispin Johnson on 01/31/2023 6:33 PM PDT Approved by: Crispin Johnson on 01/31/2023 6:33 PM PDT Station ID: [id number]
--- NOTE | 2023-01-31 18:55 | ED Physician Documentation ---
History of Present Illness - Stated complaint Stated Complaint: LT ANKLE PX - Chief complaint Chief Complaint: Trauma Ext - Additonal information Additional information: 72-year-old female presents emergency department for evaluation of left lower leg pain. She is planned with her dogs outside when she was hit by one of the dogs and fell onto the leg heard a pop and crack. Unable to bear weight. No history of previous injury. She did not strike her head or lose consciousness. No anticoagulation. Review of Systems Musculoskeletal: reports: Joint pain, Joint swelling PD PAST MEDICAL HISTORY - Past Medical History Endocrine/Autoimmune: HyPOthyroidism - Past Surgical History Past Surgical History: Yes General: Cholecystectomy - Present Medications Home Medications: Ambulatory Orders Medication Instructions Recorded Confirmed Albuterol Sulfate [Proair 90 mcg IH 01/31/23 01/31/23 Digihaler] Alendronate Sodium 35 mg PO 01/31/23 Fluticasone 110 Mcg [Flovent] 01/31/23 HYDROcod/ACETAM 5/325 [Stillwater 5/325] 1 tablet PO BID PRN #10 tablet 01/31/23 Levothyroxine Sodium [Synthroid] 01/31/23 Omeprazole Magnesium 20 mg PO 01/31/23 01/31/23 Pravastatin [Pravachol] 40 mg PO 01/31/23 01/31/23 metFORMIN [Glucophage] 500 mg PO BIDWM 01/31/23 01/31/23 - Allergies Allergies/Adverse Reactions: Allergies Allergy/AdvReac Type Severity Reaction Status Date / Time codeine Allergy Emesis Verified 01/31/23 17:35 Sulfa (Sulfonamide Allergy Rash Verified 01/31/23 17:35 Antibiotics) - Social History Does the pt smoke?: Yes Smoking Status: Current every day smoker Does the pt drink ETOH?: No - Immunizations Immunizations are current?: No PD ED PE EXPANDED - Extremities Extremities: Left ankle (Modest swelling and mild ecchymosis left lateral malleolus. Point tenderness distally. Normal dorsi and plantarflexion. Active full range of motion. 2+ DP pulse. No Achilles tenderness. No pain at the base of the fifth metatarsal.) Results - Vitals Vitals: Vital Signs - 24 hr 01/31/23 17:36 Temperature 36.4 C L Heart Rate 75 Respiratory 16 Rate Blood Pressure 124/105 H O2 Saturation 99 Oxygen O2 Source Room air - Rads (name of study) left ankle Relevant Findings:: Final report received (Suspect oblique fracture through the distal tibia at the level of the syndesmosis. No features of unknown stable fracture) PD Medical Decision Making - ED course Complexity details: reviewed results, re-evaluated patient, d/w patient ED course: 68 for a female here for acute left ankle pain sustained after a fall while outside playing with her dogs. The x-ray indicates possible oblique distal radial fracture quite stable in appearance. Given her age and the wish to reduce pressure ulcerations we have placed her in an Aircast and given crutches. She will follow closely with her PCP for referral to orthopedics though likely this is nonoperatively managed. Recommend Tylenol and Motrin for analgesia with limited amount of hydrocodone sent to the preferred pharmacy. I am prescribing a short course of short-acting opioid pain medication for this patient. I have reviewed the patients PRODUCT GRADER and no concerning findings were noted. I have discussed that the opioids are for short term therapy only, and wi ll not be refilled from the ED. Departure - Departure Disposition: 01 Home, Self Care Clinical Impression: Closed left fibular fracture Qualifiers: Encounter type: initial encounter Fibula location: distal Fracture morphology: other fracture Qualified Code(s): S82.832A - Other fracture of upper and lower end of left fibula, initial encounter for closed fracture Condition: Stable Record reviewed to determine appropriate education?: Yes Instructions: ED Fx Lower Ext Follow-Up: Sonia Telles ARNP [Primary Care Provider] - Prescriptions: HYDROcod/ACETAM 5/325 [Stillwater 5/325] 1 tablet PO BID PRN #10 tablet PRN Reason: Pain Comments: You had a fall at home today and have sustained a minor fracture to your distal left fibula. This is something that would likely be allowed to heal naturally without any surgery. In general I would like you to wear the air splint at all times with the exception of showering. Would like you to take Tylenol 500 mg with food 3 times a day or alternate with ibuprofen 600 mg also with food 3 times a day. For more severe pain limited amount of Still[place] has been sent to the [facility] in [place]. Please discuss this ED visit with primary care doctor. You should obtain a referral to orthopedics for longer-term follow-up. Return to the ER for any new or worsening symptoms. I am prescribing a short course of narcotic pain medication for you. These are potentially dangerous and addictive medications that should be used carefully. These medications may constipate you. Take an rift-iya-eecoetw stool softener (docusate) twice daily with plenty of water while taking these medications. If you go 24 hours without a bowel movement, take ayqr-hnj-htuxnsz miralax, per package instructions. Do not drink or drive while taking these medications. If you received narcotic or sedating medications while in the emergency department, do not drive for 24 hours. Store this medication in a safe, secure place and out of reach of children. It is a violation of federal law to give or sell this medication to another person or to use in a manner other than prescribed. The ED will not refill narcotic prescriptions, including prescriptions lost or stolen. To dispose of unwanted medications: 1. [facility] at [address] in [place] has a medication drop box. They accept prescription medications (in pill form) Monday through Monday 9:00 a.m. to 5:00 p.m. 2. The [facility] [employer] accepts prescription medications (in pill form only) for disposal year round. Call for more information. 3. Contact the [facility] for the next [facility] sponsored prescription drug collection event. , [phone], or [phone]; Note that many narcotic pain relievers also contain Tylenol/acetaminophen. Please ensure that your total dose of acetaminophen from all sources does not exceed 3 g (3000 mg) per day. Forms: PCP List
== END 2023-01-31 19:38 | disposition home or self-care (01) ==
LOC: ED 17:23
DX: S82.832A Other fracture of upper and lower end of left fibula, initial encounter for closed fracture (principal); W18.30XA Fall on same level, unspecified, initial encounter; F17.200 Nicotine dependence, unspecified, uncomplicated
CPT/HCPCS: 99283

== ENCOUNTER 2023-02-14 08:00 | Outpatient (CLI) | payer MEDICARE, OTHER ==
--- NOTE | 2023-02-14 13:47 | XRAY Report ---
PROCEDURE: Ankle 3 View LT INDICATIONS: LEFT ANKLE FRACTURE TECHNIQUE: 3 views of the ankle were acquired. COMPARISON: 01/31/2023. FINDINGS: Bones: Unchanged alignment of a nondisplaced oblique distal fibular fracture with very early progres s in healing. Soft tissues: No tibiotalar joint effusion. Achilles tendon appears normal. IMPRESSION: Expected appearance of subacute distal fibular fracture. Reviewed by: Adalid Huggins MD on 02/14/2023 1:46 PM PDT Approved by: Adalid Huggins MD on 02/14/2023 1:46 PM PDT Station ID: [id number]
== END 2023-02-14 23:59 | disposition home or self-care (01) ==
LOC: DI.WOS 08:00
PROVIDERS: ATTEND Physician Assistant Surgical
DX: S82.832D Other fracture of upper and lower end of left fibula, subsequent encounter for closed fracture with routine healing (principal)

== ENCOUNTER 2023-03-14 08:00 | Outpatient (CLI) | payer MEDICARE, OTHER ==
--- NOTE | 2023-03-14 15:06 | XRAY Report ---
PROCEDURE: Ankle 3 View LT INDICATIONS: LEFT ANKLE FRACTURE TECHNIQUE: 3 views of the ankle were acquired. COMPARISON: 02/14/2023. FINDINGS: Bones: Distal left fibular fracture less conspicuous compared to prior exam compatible with progress ion of healing. Distal left fibular fracture stable alignment. Ankle mortise is normally aligned. No suspicious bony lesions. Soft tissues: No tibiotalar joint effusion. Achilles tendon appears normal. IMPRESSION: Healing distal left fibular fracture. Reviewed by: Chel Kennedy MD, PhD on 03/14/2023 3:05 PM PST Approved by: Chel Kennedy MD, PhD on 03/14/2023 3:05 PM PST Station ID: [id number]
== END 2023-03-14 23:59 | disposition home or self-care (01) ==
LOC: DI.WOS 08:00
PROVIDERS: ATTEND Physician Assistant Surgical
DX: S82.65XD Nondisplaced fracture of lateral malleolus of left fibula, subsequent encounter for closed fracture with routine healing (principal)

== ENCOUNTER 2023-04-04 11:30 | Outpatient (CLI) | payer MEDICARE, OTHER ==
--- NOTE | 2023-04-04 15:16 | XRAY Report ---
PROCEDURE: Ankle 3 View LT INDICATIONS: LEFT ANKLE FRACTURE TECHNIQUE: 3 views of the ankle were acquired. COMPARISON: X-ray ankle 03/14/2023 FINDINGS: Bones: Oblique distal fibular fracture demonstrating mild interval healing. Stable alignment. Tibiot alar Ankle mortise is normally aligned. No suspicious bony lesions. Soft tissues: No tibiotalar joint effusion. Achilles tendon appears normal. IMPRESSION: Stable alignment with mild interval healing distal fibular fracture. Reviewed by: Chrissy Downing MD on 04/04/2023 3:14 PM PST Approved by: Chrissy Downing MD on 04/04/2023 3:14 PM [facility] Station ID: [id number]
== END 2023-04-04 23:59 | disposition home or self-care (01) ==
LOC: DI.WOS 11:30
PROVIDERS: ATTEND Physician Assistant Surgical
DX: S82.65XD Nondisplaced fracture of lateral malleolus of left fibula, subsequent encounter for closed fracture with routine healing (principal)

== ENCOUNTER 2023-06-27 10:30 | Outpatient (CLI) | payer MEDICARE, OTHER ==
--- NOTE | 2023-06-27 13:32 | XRAY Report ---
PROCEDURE: Ankle 3 View LT INDICATIONS: LEFT ANKLE FRACTURE TECHNIQUE: 3 views of the ankle were acquired. COMPARISON: X-ray ankle 04/04/2023. FINDINGS: Bones: No new fractures or dislocations. Minimal lucency representing old distal fibular fracture a gain noted. Ankle mortise is normally aligned. No suspicious bony lesions. Soft tissues: No radiographically evident soft tissue swelling.. IMPRESSION: No acute bony abnormality. Reviewed by: Joseluis Segura MD on 06/27/2023 1:31 PM PST Approved by: Joseluis Segura MD on 06/27/2023 1:31 PM [facility] Station ID: [id number]
== END 2023-06-27 23:59 | disposition home or self-care (01) ==
LOC: DI.WOS 10:30
PROVIDERS: ATTEND Physician Assistant Surgical
DX: S82.65XD Nondisplaced fracture of lateral malleolus of left fibula, subsequent encounter for closed fracture with routine healing (principal)

== ENCOUNTER 2023-08-03 08:36 | Outpatient (CLI) | payer MEDICARE, OTHER ==
[2023-08-03 12:04] LABS: BASOPHILS # (AUTO) 0.1 10^3/uL (0.0-0.1); BASOPHILS % (AUTO) 1.3 %; EOSINOPHILS # (AUTO) 0.3 10^3/uL (0.0-0.7); EOSINOPHILS % (AUTO) 3.4 %; HCT - HEMATOCRIT 42.2 % (37.0-47.0); HGB - HEMOGLOBIN 13.5 g/dL (12.0-16.0); LYMPHOCYTES # (AUTO) 2.4 10^3/uL (1.5-3.5); LYMPHOCYTES % (AUTO) 30.3 %; MEAN CORPUSCULAR HEMOGLOBIN 29.8 pg (27.0-31.0); MEAN CORPUSCULAR VOLUME 93.2 fL (81.0-99.0); MEAN PLATELET VOLUME 10.4 fL (7.9-10.8); MONOCYTES # (AUTO) 0.7 10^3/uL (0.0-1.0); MONOCYTES % (AUTO) 8.3 %; NEUTROPHILS # (AUTO) 4.5 10^3/uL (1.5-6.6); NEUTROPHILS % (AUTO) 56.3 %; PLT - PLATELET COUNT 257 10^3/uL (130-450); RED BLOOD COUNT 4.53 10^6/uL (4.20-5.40); RED CELL DISTRIBUTION WIDTH 12.8 % (12.0-15.0); WHITE BLOOD COUNT 7.9 x10^3/uL (4.8-10.8)
[2023-08-03 12:26] LABS: ALBUMIN 4.3 g/dL (3.2-5.5); ALBUMIN/GLOBULIN RATIO 1.5 (1.0-2.2); ALKALINE PHOSPHATASE 76 IU/L (42-121); ALT ALANINE AMINOTRANSFERASE 8 IU/L (10-60); AST ASPARTATE AMINOTRANSFERASE 12 IU/L (10-42); BILIRUBIN,TOTAL 0.4 mg/dL (0.2-1.0); BUN - BLOOD UREA NITROGEN 16 mg/dL (6-20); CALCIUM 10.5 mg/dL (8.5-10.3); CARBON DIOXIDE - CO2 30 mmol/L (21-32); CHLORIDE 106 mmol/L (101-111); CHOL/HDL RATIO 3.3 (<4.4); CHOLESTEROL 169 mg/dL; CREATININE 0.8 mg/dL (0.6-1.3); GFR - MDRD 70 (>89); GLUCOSE 107 mg/dL (74-104); HDL CHOLESTEROL 52 mg/dL; LDL CHOLESTEROL,CALCULATED 80 mg/dL; LDL/HDL RATIO 1.5 (<4.4); POTASSIUM 4.3 mmol/L (3.5-4.5); SODIUM 141 mmol/L (135-145); THYROID STIMULATING HORMONE 0.46 uIU/mL (0.34-5.60); TOTAL PROTEIN 7.1 g/dL (6.4-8.9); TRIGLYCERIDES 185 mg/dL (48-352); VLDL CHOLESTEROL 37 mg/dL
[2023-08-03 12:29] LABS: ESTIMATED AVERAGE GLUCOSE 120 mg/dL (70-100); HEMOGLOBIN A1c% 5.8 % (4.27-6.07)
== END 2023-08-03 08:37 | disposition home or self-care (01) ==
LOC: LAB.N 08:36
PROVIDERS: ATTEND Nurse Practitioner
DX: E11.9 Type 2 diabetes mellitus without complications (principal); E78.5 Hyperlipidemia, unspecified; E53.8 Deficiency of other specified B group vitamins; E03.9 Hypothyroidism, unspecified
CPT/HCPCS: 36415; 80053; 80061; 82607; 83036; 83721; 84439; 84443; 85025

== ENCOUNTER 2023-10-19 10:45 | Outpatient (CLI) | payer MEDICARE, OTHER ==
--- NOTE | 2023-10-19 14:16 | XRAY Report ---
PROCEDURE: Chest 2V INDICATIONS: COUGH TECHNIQUE: 2 views of the chest were acquired. COMPARISON: 03/01/2022 FINDINGS: Surgical changes and devices: None. Lungs and pleura: Mildly hyperinflated lungs with coarse interstitial markings and scarring at the l eft lateral lung base. No acute consolidation, effusion, or pneumothorax. Mediastinum: Mediastinal contours appear normal. Heart size is normal. Bones and chest wall: No suspicious bony lesions. Overlying soft tissues appear unremarkable. IMPRESSION: No acute cardiopulmonary disease. Mild hyperinflation suggesting emphysema. Reviewed by: Kriss Jacinto MD on 10/19/2023 2:15 PM PDT Approved by: Kriss Jacinto MD on 10/19/2023 2:15 PM PDT Station ID: [id number]
== END 2023-10-19 11:00 | disposition home or self-care (01) ==
LOC: DI.N 10:45
PROVIDERS: ATTEND Family Medicine
DX: R05.9 Cough, unspecified (principal)

== ENCOUNTER 2024-01-15 13:26 | Outpatient (CLI) | payer MEDICARE, OTHER ==
--- NOTE | 2024-01-17 15:31 | Mammography Report ---
BILATERAL DIGITAL SCREENING MAMMOGRAM 3D/2D: 01/15/2024 CLINICAL: Routine screening. Comparison is made to exams dated: 05/24/2022 mammogram, 12/30/2020 mammogram, 10/31/2018 mammogram, and 09/26/2013 mammogram - [facility]. There are scattered areas of fibroglandular density (category b / 25%-50% glandular tissue). No significant masses, calcifications, or other findings are seen in either breast. There has been no significant interval change. IMPRESSION: NEGATIVE There is no mammographic evidence of malignancy. A 1 year screening mammogram is recommended. Based on the Tyrer Cuzick model (a risk assessment model) the patient's lifetime risk is 2.3% and her 10 year risk is 2.3%. According to the ACR, ACS, and NCCN guidelines, an annual breast MRI exam conrad g with mammogram is recommended if the patient's lifetime risk is 20% or greater. This exam was interpreted at Station ID: [id number]. NOTE: For mammograms, a report in lay terms will be sent to the patient. Approximately 15% of breast malignancies will not be visualized mammographically. In the management of a palpable breast mass, a negative mammogram must not discourage biopsy of a clinically suspicious lesion. Electronically Signed By: Kaylee Joshua M.D., Ph.D. eb/penrad:01/16/2024 12:33:40 ACR BI-RADS Category 1: Negative 3341F PARENCHYMAL PATTERN: (A) - The breast(s) demonstrate(s) scattered fibroglandular densities. BI-RADS CATEGORY: (1) - 1 RECOMMENDATION: (ANNUAL) - Recommend routine annual screening mammography. [id number] 1 year screening LATERALITY: (B)
== END 2024-01-15 13:27 | disposition home or self-care (01) ==
LOC: DI 13:26
PROVIDERS: ATTEND Nurse Practitioner
DX: Z12.31 Encounter for screening mammogram for malignant neoplasm of breast (principal)

== ENCOUNTER 2024-01-15 13:27 | Outpatient (CLI) | payer MEDICARE, OTHER ==
--- NOTE | 2024-01-16 12:06 | CT Report ---
PROCEDURE: Lung Cancer Screen INDICATIONS: CIGARETTE SMOKER TECHNIQUE: A CT scan of the chest was performed. Intravenous contrast media was not administered. Images were re corded and evaluated at appropriate window settings. Reformats: axial MIP of the chest, coronal and s agittal. For radiation dose reduction, the following was used: automated exposure control, adjustment of mA and/or kV according to patient size. COMPARISON: 06/06/[address] abdomen dated 03/08/2021 FINDINGS: Image quality: Diagnostic. Lungs and pleura: No pleural effusions. No pneumothorax. Stable appearance of 3 mm medial right uppe r lobe pulmonary nodule (30/series 4). No new suspicious or enlarging pulmonary nodules identified. N o septal thickening or nodularity. Mediastinum: Heart size is normal. No pericardial effusion. No large vessel abnormality. No mediastin al adenopathy by size criteria. Atherosclerosis. Chest wall and lower neck: Thyroid is unremarkable. No axillary or supraclavicular adenopathy by size . Bones: No aggressive osseous abnormality. No acute compression fractures. Upper Abdomen: Redemonstration of multiple hepatic hypodensities likely representing cysts or hemangi omas. Otherwise, upper abdominal structures appear unremarkable. Status post cholecystectomy. IMPRESSION: CT chest without acute cardiopulmonary abnormalities. No suspicious pulmonary nodules. St able 3 mm medial right upper lobe nodule. Lung RAD: 2 - Benign. Recommendation: Continue annual screening in 12 Months with LDCT Non-Lung Significant Findings: None. Reviewed by: Juan Mcdonald MD on 01/16/2024 11:05 AM [facility] Approved by: Juan Mcdonald MD on 01/16/2024 11:05 AM [facility] Station ID: [id number]
== END 2024-01-15 13:28 | disposition home or self-care (01) ==
LOC: DI 13:27
PROVIDERS: ATTEND Nurse Practitioner
DX: Z12.2 Encounter for screening for malignant neoplasm of respiratory organs (principal); R91.1 Solitary pulmonary nodule; F17.210 Nicotine dependence, cigarettes, uncomplicated